=== PATIENT | female | born 1950 | race Caucasian/White ===

== ENCOUNTER → 2018-11-14 13:07 | Outpatient (CLI) | payer OTHER, SELFPAY | PROVIDERS: PCP Family Medicine; Visit Provider Family Medicine | DX: M85.851 Other specified disorders of bone density and structure, right thigh (principal); Z78.0 Asymptomatic menopausal state; Z90.722 Acquired absence of ovaries, bilateral | CPT/HCPCS: 77080 ==

== ENCOUNTER → 2019-03-15 11:07 | Outpatient (CLI) | payer OTHER, SELFPAY ==
[2019-03-15 12:19] LABS: Add Manual Diff / Slide Review NO; Basophils Absolute Auto 100 /uL (0-100); Basophils Percent Auto 1.2 % (0-2); Eosinophils Absolute Auto 100 /uL (0-450); Hemoglobin 14.4 g/dL (12.0-16.0); Lymphocytes Absolute Auto 1900 /uL (1100-4500); Lymphocytes Percent Auto 31.1 % (25-40); Mean Corpuscular HGB Conc 34.1 % (30-36); Mean Corpuscular Hemoglobin 32.1 PG (26-34); Mean Corpuscular Volume 94.1 fL (80-100); Monocytes Absolute Auto 500 /uL (0-900); Monocytes Percent Auto 7.3 % (3-14); Neutrophils Absolute Auto 3600 /uL (1500-7000); Neutrophils Percent Auto 58.4 % (50-75); Platelet Count 273 X10^3/uL (150-400); Red Blood Cell Count 4.47 X10^6/uL (4.0-5.2); Red Cell Distribution Width 12.8 % (11.6-14.8); White Blood Cell Count 6.2 X10^3/uL (4.5-11.0)
[2019-03-15 12:51] LABS: Alanine Aminotransferase 10 IU/L (9-52); Albumin 4.4 g/dL (3.5-5.0); Albumin Globulin Ratio 1.5 (1.0-2.8); Alkaline Phosphatase 73 U/L (38-126); Aspartate Aminotransferase 22 IU/L (14-36); BUN Creatinine Ratio 18.6 (6-22); Bilirubin Total 0.7 mg/dL (0.2-1.3); Blood Urea Nitrogen 13 mg/dL (7-17); Carbon Dioxide 31 mmol/L (22-32); Chloride 101 mmol/L (98-107); Estimated Glomerular Filt Rate > 60.0 mL/min (>60); Globulin 2.9 g/dL (1.7-4.1); Glucose 114 mg/dL (80-110); HEMOLYSIS < 15 (0-50); Lipase 110 U/L (23-300); Magnesium 2.3 mg/dL (1.6-2.3); Potassium 5.2 mmol/L (3.4-5.1); Sodium 140 mmol/L (137-145); Total Protein 7.3 g/dL (6.3-8.2)
== END ==
PROVIDERS: PCP Family Medicine; Visit Provider Physician Assistant
DX: R42 Dizziness and giddiness (principal)
CPT/HCPCS: 36415; 80053; 83690; 83735; 85025

== ENCOUNTER → 2021-01-20 08:27 | Outpatient (CLI) | payer MEDICARE, OTHER, SELFPAY ==
--- NOTE | 2021-01-20 | DI.US.S_ITS ---
PROCEDURE: US CAROTID DOPPLER BI INDICATIONS: Transient cerebral ischemic attack,CHEST PAIN TECHNIQUE: Color and pulse Doppler interrogation was performed of both carotid systems, with image documentation and velocity measurements. COMPARISON: None. FINDINGS: Stenosis calculations are based on SRU (Society of Radiologists in Ultrasound) criteria. Right side: Brachial blood pressure: 148/91 mm Hg. Common carotid artery peak systolic velocity: 66 cm/sec. Internal carotid artery peak systolic velocity: 58 cm/sec. Internal carotid artery end diastolic velocity: 20 cm/sec. External carotid artery peak systolic velocity: 77 cm/sec. ICA/CCA peak systolic ratio: 0.9. Gutierrez scale imaging description: No significant atherosclerotic plaques are noted in carotid arteries. Slightly tortuous carotid arteries are noted. Percent internal carotid artery stenosis: No significant stenosis. Vertebral artery: Flow direction is antegrade. Left side: Brachial blood pressure: 145/90 mm Hg. Common carotid artery peak systolic velocity: 95 cm/sec. Internal carotid artery peak systolic velocity: 101 cm/sec. Internal carotid artery end diastolic velocity: 34 cm/sec. External carotid artery peak systolic velocity: 62 cm/sec. ICA/CCA peak systolic ratio: 1.1. Gutierrez scale imaging description: Mildly tortuous carotid arteries with no significant atherosclerotic plaque seen. Percent internal carotid artery stenosis: No significant stenosis. Vertebral artery: Flow direction is antegrade. IMPRESSION: No significant stenosis or atherosclerotic disease is seen in bilateral carotid arteries. Dictated by: Stoney Woods M.D. on 01/20/2021 at 12:50 Approved by: Stoney Woods M.D. on 01/20/2021 at 12:52
--- NOTE | 2021-01-20 | DI.ECHO.S_ITS ---
[facility] +---------+ : : [address] : : : : [id number] : : : : Phone: [phone]+ Echocardiogram Report + + :Name: SLIM PRUITT Study Date: 01/20/2021 Height: 66 in : :[facility] ReadingLocation: Weight: 153 lb : : Gender: Female BSA: 1.8 m2 : :: 1950 Age: 70 yrs BP: 149/89 mmHg: :Reason For Study: TRANSIENT CEREBRAL ISCHMIC ATTACK, CHEST : :PAIN : :Ordering Physician: PABLO : :BENJAMIN Carpenter Performed By: Bibiana Land : :Referring: BENJAMIN SHAH : + + Interpretation Summary The patient was in sinus rhythm with heart rates between 64-82 bpm during the exam. The left ventricle is normal in size and wall thickness. There is no obvious LV thrombus. The ejection fraction is estimated to be 55-60%. The right ventricle is normal in size and function. There is mild tricuspid regurgitation. The right ventricular systolic pressure is estimated to be at least 25 mmHg based on an estimated right atrial pressure of 3 mm Hg. The ascending aorta is mildly enlarged. Procedure: A two-dimensional transthoracic echocardiogram with color flow and Doppler was performed. The study quality was technically adequate. There is no prior echocardiogram noted for this patient. The patient was in sinus rhythm with heart rates between 64-82 bpm during the exam. Left Ventricle: The left ventricle is normal in size and wall thickness. There is no thrombus. The ejection fraction is estimated to be 55-60%. There are no focal wall motion abnormalities. Diastolic parameters suggest a relaxation abnormality of the left ventricle, consistent with probable normal filling pressures. Right Ventricle: The right ventricle is normal in size and function. Atria: Both atria are normal in size. A prominent eustachian valve is noted. There is no Doppler evidence for an interatrial shunt. Mitral Valve: There is mild mitral annular calcification. There is trace mitral regurgitation. Aortic Valve: The aortic valve is trileaflet. The aortic valve opens well. There is no aortic valve stenosis. No aortic regurgitation is present. Tricuspid Valve: The tricuspid valve is normal. There is mild tricuspid regurgitation. The right ventricular systolic pressure is estimated to be at least 25 mmHg based on an estimated right atrial pressure of 3 mm Hg. Pulmonic Valve: The pulmonic valve leaflets are thin and pliable; valve motion is normal. There is mild pulmonic regurgitation. Great Vessels: The aortic root is normal size. The ascending aorta is mildly enlarged. The IVC is of normal diameter and collapses greater than 50% with a sniff. This suggests a low right atrial pressure of 3 mm Hg. Pericardium/ Pleura There is no pericardial effusion. There is no pleural effusion. MMode/2D Measurements & Calculations LVIDd: 4.3 cm LVOT diam: 2.0 cm LVIDs: 2.7 cm Ao root diam: 3.2 cm FS: 36.5 % asc Aorta Diam: 3.6 cm IVSd: 0.74 cm Ao Arch Diam (Prox Trans): 2.5 cm LVPWd: 0.86 cm LV fonseca. diameter/BSA (cm/m^2): 2.4 LV sys. diameter/BSA (cm/m^2): 1.5 LA A2 area: 18.3 cm2 RA long axis: 5.0 cm LA A4 area: 13.7 cm2 RA area: 13.8 cm2 LA length (vol): 4.6 cm RA vol: 32.8 ml LA vol: 46.0 ml RA : 18.4 ml/m2 LA vol index: 25.8 ml/m2 IVC diam: 1.2 cm RVD1 (basal): 3.2 cm TAPSE: 2.2 cm Doppler Measurements & Calculations Ao V2 max: 131.8 cm/sec LVOT Max Alton: 106.2 cm/sec Ao V2 mean: 89.4 cm/sec LV V1 max P.5 mmHg Ao max P.9 mmHg LV V1 VTI: 22.0 cm Ao mean P.6 mmHg YENI(I,D): 2.3 cm2 Ao V2 VTI: 28.9 cm YENI(V,D): 2.4 cm2 sev ratio: 0.76 YENI indexed to BSA (cm^2/m^2): 1.3 MV E max alton: 77.7 cm/sec TR max alton: 234.5 cm/sec MV A max alton: 92.9 cm/sec TR max P.0 mmHg MV E/A: 0.84 PA V2 max: 89.8 cm/sec Med Peak E' Alton: 6.8 cm/sec PA V2 mean: 60.3 cm/sec E/E' med: 11.5 PA mean P.7 mmHg Lat Peak E' Alton: 6.9 cm/sec PA pr(Accel): 22.5 mmHg E/E' lat: 11.3 E/e' average: 11.4 MV dec time: 0.16 sec SV([facility]): 66.7 ml Reading Physician:05:50 PM
--- NOTE | 2021-01-20 | DI.MRI.S_ITS ---
PROCEDURE: MR HEAD/BRAIN WO CON INDICATIONS: Transient cerebral ischemic attack,CHEST PAIN TECHNIQUE: Non-contrast axial T1 spin echo, axial T2 fast spin echo, sagittal and axial FLAIR, coronal T2 fast spin echo, axial gradient echo, axial diffusion and ADC through the brain. COMPARISON: None. FINDINGS: Image quality: Excellent. CSF spaces: Ventricles appear symmetric in size and shape. Basal cisterns are patent. No extra-axial fluid collections. Brain: No intracranial bleeds or mass effects. There is cerebral volume loss for age. There are periventricular and deep white matter chronic small vessel ischemic changes. There are focal regions of ill-defined FLAIR signal elevation within the right parietal subcortical white matter spanning 20 mm and within the left mid temporal lobe measuring 15 mm, which are somewhat atypical for small vessel disease. Additionally, there is a 5 mm rounded focus of high FLAIR signal intensity with central hypointensity which is also atypical. Brainstem appears normal. Diffusion-weighted images show no acute ischemic insults. No chronic ischemic insults. Normal intravascular flow voids are present. Skull and face: Calvarial bone marrow is normal in signal. Orbits are normal. Sinuses: Sinuses and mastoids are clear. IMPRESSION: 1. Mild volume loss and small vessel ischemic disease. 2. Indeterminate regions of focal FLAIR signal elevation within the right parietal, left frontal, and left temporal lobe as described above. Initial further assessment with postcontrast enhanced MRI is recommended, to assess for demyelinating disorders, or neoplasm. Dictated by: Ray Cota M.D. on 01/20/2021 at 9:26 Approved by: Ray Cota M.D. on 01/20/2021 at 9:29
== END ==
PROVIDERS: PCP Family Medicine; Referring Provider Family Medicine; Visit Provider Family Medicine
DX: G45.9 Transient cerebral ischemic attack, unspecified (principal); R07.9 Chest pain, unspecified; I07.1 Rheumatic tricuspid insufficiency; I77.89 Other specified disorders of arteries and arterioles
CPT/HCPCS: 70551; 93306; 93880

== ENCOUNTER → 2024-02-06 13:33 | Outpatient (CLI) | payer MEDICARE, OTHER, SELFPAY ==
--- NOTE | 2024-02-06 | DI.US.S_ITS ---
PROCEDURE: US SOFT TISSUE HEAD AND NECK INDICATIONS: Localized swelling, mass and lump, neck TECHNIQUE: Real-time scanning was performed of the neck region of interest, with image documentation. COMPARISON: None. FINDINGS: In the indicated area of palpable abnormality in the right superior neck, there are no significant lymph nodes, cysts, or solid masses. The right thyroid lobe appears normal. Incidentally noted is a solid left thyroid nodule with small scattered punctate foci measuring 1.4 x 1.0 x 0.9 cm. IMPRESSION: No sonographic abnormalities in the indicated area of concern in the right neck. Incidental note of solid left thyroid lobe nodule. Patient reports history of biopsy of this nodule. Please correlate with outside or remote historical records. If none are available, dedicated thyroid ultrasound for full assessment is recommended. Dictated by: Taty Carr M.D. on 02/07/2024 at 12:56 Approved by: Taty Carr M.D. on 02/07/2024 at 12:59
== END ==
PROVIDERS: PCP Physician Assistant Medical; Referring Provider Physician Assistant Medical; Visit Provider Physician Assistant Medical
DX: E04.1 Nontoxic single thyroid nodule (principal); R22.1 Localized swelling, mass and lump, neck
CPT/HCPCS: 76536

== ENCOUNTER → 2024-02-21 11:31 | Outpatient (CLI) | payer MEDICARE, OTHER, SELFPAY ==
--- NOTE | 2024-02-21 | DI.US.S_ITS ---
PROCEDURE: US THYROID INDICATIONS: NONTOXIC SINGLE THYROID NODULE TECHNIQUE: Real-time scanning was performed of the thyroid gland, with image documentation. COMPARISON: [facility], US, US SOFT TISSUE HEAD AND NECK, 02/06/2024, 13:47. FINDINGS: Thyroid: Right lobe measures 5.1 x 1.5 x 1.6 cm. Left lobe measures 5.1 x 1.8 x 1.8 cm. Isthmus is 0.4 cm thick. Echotexture is homogeneous. Nodule number: 1 Location: Left midpole Size: 1.5 x 0.9 x 1.1 cm. Composition: Solid Echogenicity: Isoechoic Shape: wider than tall. Margins: Smooth Echogenic foci: Punctate echogenic foci Total points: 6 ACR TI-RADS category: Moderately suspicious IMPRESSION: Moderately suspicious left midpole 1.5 cm nodule. FNA biopsy recommended for further evaluation. ACR TI-RADS definitions and recommendations: TI-RADS 1 (benign): 0 points. FNA not needed. TI-RADS 2 (not suspicious): 2 points. FNA not needed. TI-RADS 3 (mildly suspicious): 3 points. * FNA if 2.5 cm or larger, follow up if 1.5 cm or larger (at 1, 3, and 5 years). TI-RADS 4 (moderately suspicious): 4-6 points. * FNA if 1.5 cm or larger, follow up if 1 cm or larger (at 1, 2, 3, and 5 years). TI-RADS 5 (highly suspicious): 7 points or more. * FNA if 1 cm or larger, follow up if 0.5 cm or larger (every year for 5 years). Dictated by: Wade Nunez M.D. on 02/21/2024 at 17:04 Approved by: Wade Nunez M.D. on 02/21/2024 at 17:07
== END ==
PROVIDERS: PCP Physician Assistant Medical; Referring Provider Physician Assistant Medical; Visit Provider Physician Assistant Medical
DX: E04.1 Nontoxic single thyroid nodule (principal)
CPT/HCPCS: 76536

== ENCOUNTER → 2024-05-06 12:00 | Outpatient (CLI) | payer MEDICARE, OTHER, SELFPAY ==
--- NOTE | 2024-05-06 | DI.US.S_ITS ---
PROCEDURE: US FINE NEEDLE ASPIRATION INDICATIONS: SINGLE THYROID NODULE TECHNIQUE: The indications, alternatives, benefits, risks, and complications of the procedure were explained to the patient. Written informed consent was obtained and placed in the chart. The thyroid region was examined sonographically and a site was chosen for ultrasound guided percutaneous sampling. The skin was prepared and draped in the usual fashion, and anesthetized with 1% lidocaine infiltrated from the skin down to the thyroid gland. Multiple passes were then performed, with contents emptied into an appropriate pathology specimen container. A bandage was applied to the area of access at completion of the study. COMPARISON: [facility], US, US THYROID, 02/21/2024, 11:41. FINDINGS: Location of lesion sampled: Left thyroid [place]: 25 gauge hypodermic needles. Number of passes: 6 Medications: 1% lidocaine for local anaesthesia. Complications: None. IMPRESSION: Successful ultrasound-guided thyroid nodule fine needle aspiration, with cytology results pending. Please see chart below for management recommendations based on cytology results. [facility] ReportingRecommendationsNon-diagnostic* Repeat US-guided FNA, with on-site cytology evaluation if possible. * Repeated non-diagnostic nodules without high suspicion US features: close observation vs surgical consult. * Consider surgery if nodule has high suspicion US features, grows >20% in 2 dimensions on followup, or patient has clinical risk factors for malignancy. Benign* If nodule has high suspicion US features: repeat US and FNA within 12 months. * If nodule has low to intermediate suspicion US features: repeat US at 12-24 months. If nodule grows (20% increase in at least 2 dimensions, with minimal increase of 2 mm or >50% change in volume), or development of new suspicious US features, then repeat FNA or continue followup. * If nodule has very low suspicion US features: followup US at >24 months. Atypia of undetermined significance, follicular lesion of undetermined significanceRepeat FNA, molecular testing, followup US, or surgical consult.Follicular neoplasm, suspicious for follicular neoplasmSurgical consult; also consider molecular testing. Suspicious for malignancySurgical consult.MalignantSurgical consult. Approved by: Antelmo Marquis M.D. on 05/06/2024 at 15:56
--- NOTE | 2024-05-06 | PATH_ITS ---
Note [facility] Accession Number: [id number] TESTS RESULT FLAG UNITS REF RANGE LAB Clinician Provided Cytology Information No. of containers..01 Other (Miscellaneous) No. of containers..02 Previously Prepared Cytology Slide Source: LEFT THYROID NODULE DIAGNOSIS: LEFT THYROID NODULE, FINE NEEDLE ASPIRATION. MARGINALLY ADEQUATE FOR EVALUATION. FEW FOLLICULAR GROUPS PRESENT. FAVOR BENIGN FOLLICULAR (GOITEROUS) NODULE (BETHESDA CATEGORY II), SEE COMMENT. COMMENT: MICROSCOPIC EXAMINATION REVEALS A MILDLY CELLULAR ASPIRATE, COMPOSED OF COLLOID, FEW FOLLICULAR GROUPS (MORE THAN SIX GROUPS THAT ARE REQUIRED FOR ADEQUACY) WITHOUT SIGNIFICANT CYTOLOGIC OR ARCHITECTURAL ATYPIA, AND BACKGROUND MACROPHAGES. THESE FINDINGS FAVOR A BENIGN FOLLICULAR (GOITEROUS) NODULE. CORRELATION WITH CLINICAL AND RADIOGRAPHIC FINDINGS IS RECOMMENDED TO ENSURE THAT THE NODULE HAS BEEN ADEQUATELY SAMPLED. ACCORDING TO THE [place] REPORTING SYSTEM FOR THYROID CYTOPATHOLOGY, THE RISK OF MALIGNANCY IN THE CATEGORY BENIGN-CATEGORY II IS 0-3%; THEREFORE RECOMMEND CONTINUED ULTRASOUND SURVEILLANCE WITH REPEAT FNA IF THE NODULE SIGNIFICANTLY INCREASES IN SIZE. Pathologist ICD10: E04.1 Signed out by: Jessica Reyes MD, Pathologist NPI- [id number] Performed by: Jessica Rodriguez, [employer] Tender ([facility]) Gross description: 01 30 CC, COLORLESS, CLEAR RECEIVED IN CYTOLYT WHITE CAP CONTAINER. RECEIVED 6 ALCOHOL FIXED SLIDES IN 2 GREEN CAP COFFINS. RECEIVED 6 FIXED STAINED SLIDES IN 2 COFFINS. RECEIVED 1 RNA VIAL. : 05-30-24 CARLITOS /TONI 05/07/2024 1207 Local FLAG LEGEND: L-Low Normal,H-High Normal,LL-Alert Low,HH-Alert High <-Panic Low,>-Panic High,A-Abnormal,AA-Critical Abnormal Performed at: [address] [address], [place] [address] Tejinder Garcia MD, Performed at: [address] [address], [place], [place] [id number] MD Tejinder Garcia MD Phone: [phone]
== END ==
LOC: US 12:03
PROVIDERS: PCP Physician Assistant Medical; Referring Provider Physician Assistant Medical; Visit Provider Physician Assistant Medical
DX: E04.1 Nontoxic single thyroid nodule (principal)
CPT/HCPCS: 10005

== ENCOUNTER → 2024-08-16 08:23 | Outpatient (CLI) | payer MEDICARE, OTHER, SELFPAY ==
--- NOTE | 2024-08-16 08:25 | DI.RAD.S_ITS ---
PROCEDURE: XR HAND LT MIN 3V INDICATIONS: Pain TECHNIQUE: 3 views of the hand(s) acquired. COMPARISON: None. FINDINGS: Bones: No fractures or dislocations. Carpal bones are normally aligned. No suspicious bony lesions. Mild 1st carpometacarpal arthritic changes Soft tissues: No suspicious soft tissue calcifications. IMPRESSION: Mild arthritic changes. No fracture or intrinsic lesion. Approved by: Demetrius Caputo M.D. on 08/16/2024 at 8:38
== END ==
PROVIDERS: PCP Physician Assistant Medical; Referring Provider Physician Assistant; Visit Provider Physician Assistant
DX: M79.642 Pain in left hand (principal)
CPT/HCPCS: 73130